=== PATIENT | male | born 1960 | race African-American/Black ===

== ENCOUNTER 2021-07-07 15:44 | Observation (INO) | payer OTHER, SELFPAY ==
[2021-07-07] VITALS (12 sets, daily range): BP systolic 109–165; BP diastolic 74–96; PULSE 71–107; RESP 13–25; TEMP 36.6–37.6; O2SAT 96–99; BMI 33.1
--- NOTE | 2021-07-07 16:01 | DI.RAD.S_ITS ---
PROCEDURE: XR CHEST 1V INDICATIONS: chest pain TECHNIQUE: One view of the chest was acquired. COMPARISON: None. FINDINGS: Surgical changes and devices: None. Lungs and pleura: Lungs are clear. No pleural effusions or pneumothorax. Mediastinum: The cardiac contours are within normal limits. The aorta demonstrates calcification and tortuosity. Bones and chest wall: No suspicious bony lesions. Overlying soft tissues appear unremarkable. IMPRESSION: Portable chest within normal limits. Dictated by: Milind Sandoval M.D. on 07/07/2021 at 15:51 Approved by: Milind Sandoval M.D. on 07/07/2021 at 15:52
[2021-07-07 16:13] LABS: Add Manual Diff / Slide Review NO; Basophils Absolute Auto 0 /uL (0-100); Basophils Percent Auto 0.8 % (0-2); Eosinophils Absolute Auto 0 /uL (0-450); Eosinophils Percent Auto 0.3 % (2-4); Hematocrit 42.4 % (41-53); Lymphocytes Absolute Auto 1000 /uL (1100-4500); Lymphocytes Percent Auto 25.6 % (25-40); Mean Corpuscular HGB Conc 32.9 % (30-36); Mean Corpuscular Hemoglobin 27.1 PG (26-34); Mean Corpuscular Volume 82.5 fL (80-100); Monocytes Absolute Auto 800 /uL (0-900); Monocytes Percent Auto 19.5 % (3-14); Neutrophils Absolute Auto 2100 /uL (1500-7000); Neutrophils Percent Auto 53.8 % (50-75); Platelet Count 286 X10^3/uL (150-400); Red Blood Cell Count 5.14 X10^6/uL (4.5-5.9); Red Cell Distribution Width 15.2 % (11.6-14.8)
--- NOTE | 2021-07-07 16:25 | ED_ITS ---
HPI - Arrhythmia/Palpitations General Chief Complaint: Arrhythmia/Palpitations Stated Complaint: sob, dizzy, racing heart Time Seen by Provider: 07/07/21 16:03 Source: patient Mode of arrival: Ambulatory Limitations: no limitations History of Present Illness HPI narrative: Patient is a 60-year-old male. Ydv-rlqhtot-scexqljfj diabetic, hypertensive who is here for evaluation of palpitations and lightheadedness and occasional shortness of breath. Patient has noticed that for the past several months when he has exercised he gets somewhat lightheaded and feels like his heart is beating fast. He denies any chest pain. The seem to resolve when he quit exercising. Over the past couple days/24 hours he has noticed that the palpitations have come more often an hour also coming when he is not exerting himself. He does get somewhat lightheaded when the events happen. They last for seconds and then resolve. He does get somewhat short of breath when it occurs. He denies any headaches. No vision changes. No lower extremity swelling. No abdominal pain. Has not tried anything for symptoms prior to arri haris. Review of Systems Constitutional Constitutional: Denies fatigue, Denies fever(s) and Denies headache(s) Eyes Eyes: Denies change in vision ENT Ears, Nose, Mouth, and Throat: Denies headache(s) Cardiovascular Cardiovascular: Reports as per HPI and Reports system reviewed and no additional complaints, except as documented Respiratory Respiratory: Reports as per HPI and Reports system reviewed and no additional complaints, except as documented Gastrointestinal Gastrointestinal: Denies abdominal pain, Denies nausea and Denies vomiting Genitourinary Genitourinary: Reports system reviewed and no additional complaints, except as documented Musculoskeletal Musculoskeletal: Reports system reviewed and no additional complaints, except as documented Integumentary/Breasts Skin/Breast: Reports system reviewed and no additional complaints, except as documented Neurologic Neurologic: Denies headache(s) Endocrine Endocrine: Denies fatigue Hematologic/Lymphatic On Anticoagulants: No Patient History Medical History Diabetes Hypertension Social History lives independently: Yes Exam Initial Vital Signs Initial Vital Signs: Vital Signs Pulse Rate 101 H 07/07/21 15:55 Respiratory Rate 16 07/07/21 15:55 Pulse Oximetry 99 07/07/21 15:55 Const General: cooperative and healthy appearing [facility] Head: normal to inspection and normocephalic Eyes General: appearance normal, both eyes and all related structures Resp Effort & Inspection: normal respiratory effort Auscultation: clear to auscultation bilaterally Cardio Rate: tachycardic Rhythm: abnormal rhythm GI Inspection: normal to inspection Skin General: no rashes or lesions noted Neuro General: patient alert, patient awake, patient oriented x3 and moves all extremities Extrem General: normal to inspection and capillary refill normal Psych Appearance: grossly normal and well kempt Course Orders Ordered: ED Orders 07/07/21 16:00 Complete Blood Count AUTO DIFF Stat Comprehensive Metabolic Panel Stat Lipase Stat Magnesium Stat Thyroid Stimulating Hormone Stat Troponin & CK Cardiac Panel Stat 07/07/21 16:01 XR chest 1V Stat EKG-12 Lead Stat 07/07/21 16:10 COVID19 -Nasal swab/Pre-Proc Stat 07/07/21 18:00 Urine Drug Screen, Rapid Stat Discontinued Medications Aspirin (Aspirin 81 Mg Chew Tab) 324 mg PO NOW ONE Stop: 07/07/21 17:18 Last Admin: 07/07/21 17:31 Dose: 324 mg Documented by: YING Metoprolol Succinate (Metoprolol Er 25 Mg Tablet) 25 mg PO NOW ONE Stop: 07/07/21 16:37 Last Admin: 07/07/21 16:45 Dose: 25 mg Documented by: YING Vital Signs Vital signs: Vital Signs - 8 hr 07/07/21 15:55 07/07/21 16:00 07/07/21 16:13 Temperature Pulse Rate 101 H 107 H 98 H Respiratory Rate 16 18 16 Blood Pressure 162/75 H Pulse Oximetry 99 96 96 07/07/21 16:15 07/07/21 16:30 07/07/21 16:31 Temperature 99.6 F Pulse Rate 100 H 104 H 103 H Respiratory Rate 25 H 20 17 Blood Pressure 165/74 H 122/96 H 162/75 H Pulse Oximetry 98 98 98 07/07/21 16:45 07/07/21 17:00 07/07/21 17:20 Temperature Pulse Rate 93 H 96 H 80 Respiratory Rate 16 Blood Pressure 122/96 H 109/78 129/82 Pulse Oximetry 98 07/07/21 17:30 Temperature Pulse Rate 90 Respiratory Rate 13 Blood Pressure 129/82 Pulse Oximetry 98 MDM - Arrhythmia/Palpitations Lab Data Attestation: I reviewed the patient's lab results. Result diagrams: 07/07/21 16:00 07/07/21 16:00 Labs: Lab Results 07/07/21 07/07/21 07/07/21 Range/Units 16:00 16:00 16:00 WBC 4.0 L (4.5-11.0) X10^3/uL RBC 5.14 (4.5-5.9) X10^6/uL Hgb 14.0 (13.5-17.5) g/dL Hct 42.4 (41-53) % MCV 82.5 (80-100) fL MCH 27.1 (26-34) PG MCHC 32.9 (30-36) % RDW 15.2 H (11.6-14.8) % Plt Count 286 (150-400) X10^3/uL Neut % (Auto) 53.8 (50-75) % Lymph % (Auto) 25.6 (25-40) % [place] % (Auto) 19.5 H (3-14) % Eos % (Auto) 0.3 L (2-4) % Baso % (Auto) 0.8 (0-2) % Neut # (Auto) 2100 (5818-3746) /uL Lymph # (Auto) 1000 L (2903-3950) /uL [place] # (Auto) 800 (0-900) /uL Eos # (Auto) 0 (0-450) /uL Baso # (Auto) 0 (0-100) /uL Sodium 135 L (137-145) mmol/L Potassium 3.8 (3.4-5.1) mmol/L Chloride 100 (98-107) mmol/L Carbon Dioxide 22 (22-32) mmol/L BUN 21 H (9-20) mg/dL Creatinine 1.15 (0.66-1.25) mg/dL Estimated GFR > 60.0 (>60) mL/min BUN/Creatinine Ratio 18.3 (6-22) Glucose 111 H (80-110) mg/dL Calcium 10.0 (8.4-10.2) mg/dL Magnesium 1.5 L (1.6-2.3) mg/dL Total Bilirubin 0.4 (0.2-1.3) mg/dL AST 48 (17-59) IU/L ALT 32 (<50) IU/L Alkaline Phosphatase 57 (38-126) U/L Total Creatine Kinase 557 H (55-170) U/L CK-MB (CK-2) 4.79 H (<2.37) ng/mL CK-MB (CK-2) Rel Index 0.9 L (1.5-5.0) % Troponin I 0.026 (0.01-0.034) ng/mL Total Protein 9.6 H (6.3-8.2) g/dL Albumin 5.0 (3.5-5.0) g/dL Globulin 4.6 H (1.7-4.1) g/dL Albumin/Globulin Ratio 1.1 (1.0-2.8) Lipase 119 (23-300) U/L TSH (0.47-4.68) uIU/mL SARS-CoV-2 (PCR) (Negative) 07/07/21 07/07/21 Range/Units 16:00 16:10 WBC (4.5-11.0) X10^3/uL RBC (4.5-5.9) X10^6/uL Hgb (13.5-17.5) g/dL Hct (41-53) % MCV (80-100) fL MCH (26-34) PG MCHC (30-36) % RDW (11.6-14.8) % Plt Count (150-400) X10^3/uL Neut % (Auto) (50-75) % Lymph % (Auto) (25-40) % [place] % (Auto) (3-14) % Eos % (Auto) (2-4) % Baso % (Auto) (0-2) % Neut # (Auto) (0664-1307) /uL Lymph # (Auto) (4816-7692) /uL [place] # (Auto) (0-900) /uL Eos # (Auto) (0-450) /uL Baso # (Auto) (0-100) /uL Sodium (137-145) mmol/L Potassium (3.4-5.1) mmol/L Chloride (98-107) mmol/L Carbon Dioxide (22-32) mmol/L BUN (9-20) mg/dL Creatinine (0.66-1.25) mg/dL Estimated GFR (>60) mL/min BUN/Creatinine Ratio (6-22) Glucose (80-110) mg/dL Calcium (8.4-10.2) mg/dL Magnesium (1.6-2.3) mg/dL Total Bilirubin (0.2-1.3) mg/dL AST (17-59) IU/L ALT (<50) IU/L Alkaline Phosphatase (38-126) U/L Total Creatine Kinase (55-170) U/L CK-MB (CK-2) (<2.37) ng/mL CK-MB (CK-2) Rel Index (1.5-5.0) % Troponin I (0.01-0.034) ng/mL Total Protein (6.3-8.2) g/dL Albumin (3.5-5.0) g/dL Globulin (1.7-4.1) g/dL Albumin/Globulin Ratio (1.0-2.8) Lipase (23-300) U/L TSH 1.97 (0.47-4.68) uIU/mL SARS-CoV-2 (PCR) Negative (Negative) Imaging Data Chest x-ray: Radiologist's Impresson: [place] [address] XRay Report Signed Patient: Wendy Jack III MR#: [id number] : 1960 Acct:[id number] Age/Sex: 60 / M Date of Service: 07/07/21 Loc: ED Accession Number: [id number] ?? Procedure: XR chest 1V Ordering Provider: Stanley Esquivel D.O. PROCEDURE:? XR CHEST 1V ? INDICATIONS:? chest pain ? TECHNIQUE:? One view of the chest was acquired.? ? COMPARISON:? None. ? FINDINGS:? ? Surgical changes and devices:? None.? ? Lungs and pleura:? Lungs are clear.? No pleural effusions or pneumothorax.? ? Mediastinum:? The cardiac contours are within normal limits. The aorta demonstrates calcification and tortuosity. ? Bones and chest wall:? No suspicious bony lesions.? Overlying soft tissues appea r unremarkable.? ? ? IMPRESSION:? ? Portable chest within normal limits. ? ? ? Dictated by: Milind Sandoval M.D. on 07/07/2021 at 15:51 ? ? Approved by: Milind Sandoval M.D. on 07/07/2021 at 15:52?? ECG Data Attestation: I personally reviewed and interpreted this ECG as follows: Prior ECG tracings: not available for review Interpretation: Sinus tachycardia Ventricular rate 109 Occasional PAC Normal QRS Normal QTC Inverted T-wave v 6 Artifact noted V4 V5 Nons[address] T wave changes MDM Narrative Medical decision making narrative: Patient is having episodes of tachycardia. His EKG is sinus tachycardia with frequent PACs but on the monitor he appears to have frequent episodes of atrial fibrillation/atrial flutter that last for 15-20 beats and then resolve. This is happening fairly frequently and these seem to be with the patient is experiencing as his palpitations. His labs are relatively unremarkable. Chest x-ray is unremarkable. Given his past medical history some concern that this potentially is ischemia/ACS causing these new ectopy. Patient has not had risk stratification. Discussed the case with Dr. Wang with internal medicine who will admit for further evaluation and treatment. I did discuss this with the patient as well. He expressed understanding. Discharge Plan Departure Patient Disposition: Admitted as Observation Clinical Impression: Palpitations, Atrial fibrillation Admit Date/Time: 07/07/21 17:56 Admit Provider: Silvia Wang
[2021-07-07 16:28] LABS: Alanine Aminotransferase 32 IU/L (<50); Albumin Globulin Ratio 1.1 (1.0-2.8); Alkaline Phosphatase 57 U/L (38-126); Aspartate Aminotransferase 48 IU/L (17-59); BUN Creatinine Ratio 18.3 (6-22); Bilirubin Total 0.4 mg/dL (0.2-1.3); Blood Urea Nitrogen 21 mg/dL (9-20); Carbon Dioxide 22 mmol/L (22-32); Chloride 100 mmol/L (98-107); Creatine Kinase 557 U/L (55-170); Estimated Glomerular Filt Rate > 60.0 mL/min (>60); Globulin 4.6 g/dL (1.7-4.1); Glucose 111 mg/dL (80-110); HEMOLYSIS < 15 (0-50); Lipase 119 U/L (23-300); Potassium 3.8 mmol/L (3.4-5.1); Sodium 135 mmol/L (137-145); Total Protein 9.6 g/dL (6.3-8.2)
[2021-07-07 16:34] LABS: COVID19 -Nasal RAPID Negative (Negative)
[2021-07-07 16:39] LABS: Troponin I 0.026 ng/mL (0.01-0.034)
[2021-07-07 16:43] LABS: CKMB % Relative Index 0.9 % (1.5-5.0); Creatine Kinase MB 4.79 ng/mL (<2.37)
[2021-07-07] MEDS: METOPROLOL ER 25 MG TABLET PO (16:45)
[2021-07-07] MEDS: ASPIRIN 81 MG CHEW TAB 324 MG PO (17:31)
[2021-07-07 17:32] LABS: Magnesium 1.5 mg/dL (1.6-2.3)
[2021-07-07 18:03] LABS: Thyroid Stimulating Hormone 1.97 uIU/mL (0.47-4.68)
[2021-07-07 18:12] LABS: UR Morphine/Opiate cutoff 300 Negative (Negative); Ur Creatinine Normal (Normal); Ur Specific Gravity Normal (Normal); Urine Amphetamines Negative (Negative); Urine Barbiturates Negative (Negative); Urine Benzodiazepines Negative (Negative); Urine Cocaine Negative (Negative); Urine MDMA Negative (Negative); Urine Methadone Negative (Negative); Urine Methamphetamines Negative (Negative); Urine Oxycodone Negative (Negative); Urine Phencyclidine Negative (Negative); Urine Tetrahydrocannabinol Negative (Negative); Urine Tricyclic Antidepressant Negative (Negative); Urine pH Normal (Normal)
--- NOTE | 2021-07-07 20:39 | DI.ECHO.S_ITS ---
[facility]---------+ [facility] +---------+ : : [address] : : : : [id number] : : : : Phone: [phone]---------+ Echocardiogram Report + + :Name: MAYUR DUNCAN III Study Date: 07/08/2021 Height: 75 in : :[facility] ReadingLocation: Weight: 265 lb: : Gender: Male BSA: 2.5 m2 : :: 1960 Age: 60 yrs BP: 97/52 mmHg: :Reason For Study: ATRIAL FIBRILLATION : :Ordering Physician: ARTHUR, : :APRYL Performed By: Lala Quinonez : :Referring: APRYL GIBSON : + + Interpretation Summary Sinus bradycardia. Heart rate is 52-70 bpm. Normal LV size; mild asymmetric LVH (but without LVOT obstruction); EF is 60- 65%. Severe LA enlargement; RV is at the upper limit of normal. Mild MAC with mild associated MR. Otherwise no significant valvular abnormalities. Severely dilated aortic root (5.1 cm diameter) but without associated AI. Mildly dilated ascending aorta. No prior study available for comparison. Procedure: A two-dimensional transthoracic echocardiogram with color flow and Doppler was performed. The study quality was technically adequate. There is no prior echocardiogram noted for this patient. The patient was in sinus rhythm with heart rates between 52-70 bpm during the exam. The patient had occasional PVCs during the exam. Left Ventricle: The left ventricle is normal in size. There is moderate asymmetric left ventricular hypertrophy. The ejection fraction is estimated to be 60-65%. Right Ventricle: The right ventricle is at the upper limits of normal in size. The right ventricular systolic function is normal. Atria: The left atrium is severely dilated. The right atrium is normal in size. There is no Doppler evidence for an interatrial shunt. Mitral Valve: The mitral valve leaflets appear mildly thickened, but open well. There is mild mitral annular calcification. There is mild mitral regurgitation. Aortic Valve: The aortic valve is trileaflet. The aortic valve opens well. There is no aortic valve stenosis. There is mild aortic regurgitation. Tricuspid Valve: The tricuspid valve is normal in structure and function. There is mild tricuspid regurgitation. Pulmonic Valve: The pulmonic valve leaflets are thin and pliable; valve motion is normal. There is a trace or physiologic amount of pulmonic regurgitation. Great Vessels: The aortic root is severely dilated. The ascending aorta is mildly enlarged. The IVC is of normal diameter and collapses greater than 50% with a sniff. This suggests a low right atrial pressure of 3 mm Hg. Pericardium/ Pleura There is no pericardial effusion. There is no pleural effusion. MMode/2D Measurements & Calculations LVIDd: 5.3 cm LVOT diam: 2.8 cm LVIDs: 3.6 cm Ao root diam: 5.1 cm FS: 31.9 % asc Aorta Diam: 4.3 cm IVSd: 1.4 cm Ao Arch Diam (Prox Trans): 2.7 cm LVPWd: 1.0 cm LV madrid. diameter/BSA (cm/m^2): 2.1 LV sys. diameter/BSA (cm/m^2): 1.5 LA A2 area: 32.6 cm2 RA long axis: 6.5 cm LA A4 area: 27.5 cm2 RA area: 23.6 cm2 LA length (vol): 5.9 cm RA vol: 73.4 ml LA vol: 129.0 ml RA : 29.7 ml/m2 LA vol index: 52.1 ml/m2 IVC diam: 1.4 cm RVD1 (basal): 4.0 cm TAPSE: 1.9 cm Doppler Measurements & Calculations Ao V2 max: 105.3 cm/sec LVOT Max Deniz: 100.1 cm/sec Ao V2 mean: 78.2 cm/sec LV V1 max P.0 mmHg Ao max P.4 mmHg LV V1 VTI: 24.2 cm Ao mean P.6 mmHg ANGEL(I,D): 6.2 cm2 Ao V2 VTI: 24.7 cm ANGEL(V,D): 6.0 cm2 sev ratio: 0.98 ANGEL indexed to BSA (cm^2/m^2): 2.5 MV E max deniz: 66.1 cm/sec PA V2 max: 92.3 cm/sec MV A max deniz: 61.5 cm/sec PA V2 mean: 64.2 cm/sec MV E/A: 1.1 PA mean P.8 mmHg Med Peak E' Deniz: 4.9 cm/sec PA pr(Accel): 27.6 mmHg E/E' med: 13.5 Lat Peak E' Deniz: 7.5 cm/sec E/E' lat: 8.8 E/e' average: 11.2 MV dec time: 0.22 sec MR ERO: 0.26 cm2 MR PISA: 3.7 cm2 SV(LVOT): 153.0 ml MR flow rate: 136.0 cm3/sec MR PISA radius: 0.77 cm Electronically signed by: Sol Cantu M.D. on Reading Physician:07/08/2021 09:37 AM
[2021-07-07 21:07] LABS: Hemoglobin A1C% w Est Avg Glu 5.8 % (4.0-6.0)
[2021-07-07 21:39] LABS: Troponin I 0.028 ng/mL (0.01-0.034)
[2021-07-07] MEDS: MAGNESIUM SULFATE 2 GM/50 ML PIGGYBACK IV (21:45)
[2021-07-07] MEDS: APIXABAN 5 MG TABLET 2.5 MG PO (21:45)
[2021-07-07 21:57] LABS: Magnesium 1.6 mg/dL (1.6-2.3)
[2021-07-07 21:58] LABS: BUN Creatinine Ratio 17.4 (6-22); Blood Urea Nitrogen 20 mg/dL (9-20); Calcium 9.6 mg/dL (8.4-10.2); Carbon Dioxide 27 mmol/L (22-32); Chloride 101 mmol/L (98-107); Estimated Glomerular Filt Rate > 60.0 mL/min (>60); Glucose 116 mg/dL (80-110); HEMOLYSIS < 15 (0-50); Potassium 3.8 mmol/L (3.4-5.1); Sodium 137 mmol/L (137-145)
[2021-07-07 22:02] LABS: Creatine Kinase 512 U/L (55-170)
[2021-07-07 22:19] LABS: CKMB % Relative Index 0.8 % (1.5-5.0); Creatine Kinase MB 4.15 ng/mL (<2.37)
[2021-07-08] VITALS (7 sets, daily range): BP systolic 97–142; BP diastolic 52–93; PULSE 55–75; RESP 16–18; TEMP 35.9–37.2; O2SAT 97–100
--- NOTE | 2021-07-08 01:10 | DI.MRI.S_ITS ---
PROCEDURE: MR STROKE Pre- and post-contrast brain MRI, non-contrast brain MR angiogram, pre- and postcontrast neck MR angiogram INDICATIONS: Cognitive impairment TECHNIQUE: Brain: Noncontrast axial T1 spin echo, axial T2 fast spin echo, sagittal and axial FLAIR, coronal T2 fast spin echo, axial gradient echo, axial diffusion and ADC through the brain. After the administration of contrast, axial 3D VIBE of the cranial vasculature and brain. Brain MRA: Non-contrast 3-D time of flight MR angiogram, with multiple mwjtvss-jtyxjdkcn-bqorykwcxw (MIP) reformats performed. Neck MRA: Axial and sagittal TruFISP through the neck. Coronal dynamic MR angiogram during administration of contrast in the arterial and venous phases, with 3-dimenstional fitfhal-laekotwnl-jappmmficw (MIP) reformats constructed from subtraction images. COMPARISON: None. FINDINGS: Image quality: Excellent. BRAIN: CSF spaces: Ventricles are normal in size and shape. Basal cisterns are patent. No extra-axial fluid collections. Brain: No intracranial bleeds or mass effects. Boland-white matter interface is normal. Diffusion weighted images show no acute ischemic insults. Brainstem appears normal. Normal intravascular flow voids are present. No abnormal intracranial enhancement. Skull and face: Calvarial marrow signal is normal. Orbits appear normal. Sinuses: Sinuses and mastoids are clear. BRAIN MR ANGIOGRAM: Anterior circulation: Intracranial internal carotid arteries are normal in size and enhancement. The flow within the paired anterior cerebral arteries is normal and symmetric. The flow within the middle cerebral arteries is normal and symmetric. The anterior communicating artery is seen. No stenoses, occlusions, or aneurysms. Posterior circulation: The visualized portions of the vertebral arteries demonstrate normal caliber, and join to form a normal appearing basilar artery. The flow within the posterior cerebral arteries is normal and symmetric. No stenoses, occlusions, or aneurysms. NECK MR ANGIOGRAM: The origins of the left and right common, internal and external carotid arteries demonstrate no areas of hemodynamically significant stenosis, vascular occlusion or aneurysmal dilation. Origins of the left and right vertebral arteries demonstrate no areas of hemodynamically significant stenosis, vascular occlusion or aneurysmal dilation. 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 Bovine arch is incidentally noted. Limited, visualized portions of the subclavian vasculature are unremarkable. IMPRESSION: 1. No acute intracranial process. 2. No areas of hemodynamically significant stenosis, vascular occlusion or aneurysmal dilation within the anterior or posterior circulation. 3. No areas of hemodynamically significant stenosis, vascular occlusion or aneurysmal dilation within the neck vasculature. Dictated by: Yanelis Cantrell M.D. on 07/08/2021 at 9:10 Approved by: Yanelis Cantrell M.D. on 07/08/2021 at 9:14
--- NOTE | 2021-07-08 01:13 | P.HP_ITS ---
History of Present Illness History of Present Illness Date Patient Seen: 07/07/21 Time Patient Seen: 20:45 Chief complaint: sob, dizzy, racing heart Narrative: Wendy Jack III is a 60-year-old male with a medical history of [id number] Type II diabetes, essential hypertensive, BPH, and gout who presented to the ED with complaints of palpitations and lightheadedness that he has suffered from mildly, occasionally, chronically for several years but has been increasing in occurrence and intensity. Approximately a week ago the patient began to experience shortness of breath with activity, fatigue, diaphoresis, and worsening dizziness. Patient notes that these episodes sometimes appear to come on with increased talking or prolonged sitting. The e pisodes last anywhere from a few seconds to several minutes. Patient feels that symptoms often improve with walking or relaxation. Though the patient reports when he has had elevated heart rate during exercise that ceasing exercise seems to resolve symptoms as well with rest. The patient often experiences a rapid and irregular heart rate, the patient notes that both his mother and daughter suffer from atrial fibrillation and reports similar experiences. Over the past couple days/24 hours he has noticed that the palpitations have come more often an hour also coming when he is not exerting himself. Has noticed that for the past several months when he has exercised he gets somewhat lightheaded and feels like his heart is beating fast.? He denies any chest pain, headaches, vision changes, lower extremity swelling, abdominal pain, changes in vision, weakness, numbness and tingling, slurred speech, difficulty swallowing, balance or coordination issues, nausea, vomiting, fever, chills, body aches, recent illness injury or trauma. Patient denies any history of spinal cord injury or trauma to the back. During intake interview for admit patient suffered from 3 episodes lasting a few minutes in which the patient and observable mask like facial expression, going from alert and talkative to drowsy, flat type affect unable to articulate a complete thought or statement. Pt also demonstrated spastic type extremity movement. Patient has been prescribed spirolactone, losartan, amlodipine, and HCTZ to manage his essential hypertension. Patient leaves he had an echo 20-30 years ago, denies history of stress test. Patient was mildly febrile I will on admission 99.6, vital signs had been stabilized in ED BP 129/82, HR 90, RR 13, O2 saturation 98%. During these episodes I found the patient to be significantly bradycardic it with heart rates in the low 50s, but not irregular. Patient was extremely diaphoretic during these episodes with NIH:3. Patient's labs were for the most part unremarkable CBC and CMP were within normal limits magnesium was 1.5, troponin 1. 0.026, total creatinine kinase 557, CK-247.79, tox screen was negative, lipase and TSH WNL. Patient's chest x-ray was negative for acute cardiopulmonary process. Patient's EKG demonstrated sinus tachycardia in the ED with a ventricular rate of 109, occasional PACs, inverted T-wave v 6, artifact noted V4 V5, nonspecific ST T wave changes-questionable demonstration of new onset atrial fibrillation/atrial flutter. Heart score: 4. Patient admitted for observation due to sinus tachycardia with nonspecific ST and T-wave changes possible atrial fibrillation/atrial flutter, and stroke. Patient History Medical History (Updated 07/08/21 @ 01:40 by RAMONA Rios) BPH (benign prostatic hyperplasia) Diabetes Essential hypertension Gout Hypertension Non-insulin dependent type 2 diabetes mellitus Surgical History (Updated 07/08/21 @ 01:40 by RAMONA Rios) History of Achilles tendon repair History of left knee surgery Family & Social History Family History Mother Atrial fibrillation Daughter Atrial fibrillation Social History: household members spouse,family. Prior Living Arrangements House lives independently Yes Safety & Behavioral: Feels Safe in Current Yes Environment Been Physically Hurt or No Threatened By a Person Suicidal Ideation Description None Suicide Plan Description No Plan Tobacco & Substance use: Smoking Status Never smoker alcohol intake never Substance Use Type does not use Meds Home Medications and Allergies Home Medications Medication Instructions Recorded Confirmed Type allopurinol 300 mg tablet 300 mg PO QAM 07/07/21 07/07/21 History amlodipine 10 mg tablet 100 mg PO QAM 07/07/21 07/07/21 History hydrochlorothiazide 25 mg tablet 25 mg PO QAM 07/07/21 07/07/21 History losartan 25 mg tablet 25 mg PO QAM 07/07/21 07/07/21 History metformin 500 mg tablet 500 mg PO BID 07/07/21 07/07/21 History spironolactone 100 mg tablet 100 mg PO BID 07/07/21 07/07/21 History tadalafil 5 mg tablet 5 mg PO QPM 07/07/21 07/07/21 History Allergies Allergy/AdvReac Type Severity Reaction Status Date / Time No Known Drug Allergies Allergy Verified 07/07/21 18:41 Review of Systems Review of Systems Narrative: All 12 point systems reviewed with the patient and are negative except otherwise documented. Exam Vital Signs (past 8 hours): - 07/07/21 17:20 07/07/21 17:30 07/07/21 20:00 Temperature 97.9 F Pulse Rate 80 90 71 Respiratory Rate 13 18 Blood Pressure 129/82 129/82 130/77 Pulse Oximetry 98 99 07/07/21 20:32 07/08/21 00:12 07/08/21 00:32 Temperature 99.0 F Pulse Rate 65 Respiratory Rate 16 Blood Pressure 97/52 L Pulse Oximetry 99 99 100 Oxygen Delivery Method Room Air Oxygen Flow Rate 0 Narrative Exam Narrative: General: Patient is a well-developed, well-nourished fit male, in no distress a t this time. HEENT: Normocephalic, atraumatic, extraocular muscles intact, oral pharynx is clear and mucous membranes are moist. Neck is supple and symmetric, trachea is midline, no adenopathy, no thyroid enlargement, nontender, no masses palpated. Negative for JVD Chest: Normal AP diameter and contour without kyphoscoliosis, no nasal flaring, retractions, or tachypneic labored Lungs: Auscultation of all lung aust[place] are clear without adventitious sounds, wheezes, rhonchi, or rales. Cardio: S1 & S2 with regular rate and rhythm without murmur, rubs, or gallops, no carotid bruit, no cardiac pulsations present. Abdomen: Soft nontender, negative for organomegaly, or masses. Bowel sounds a re present in all 4 quadrants without guarding or rebound, no CVA tenderness. Musculoskeletal: Muscle strength and tone are equal within normal limits, no deformity, crepitus, effusions, cyanosis, clubbing or edema present. Full range of motion intact radial and pedal pulses are normal. Skin: Warm dry and intact without rashes, ulcerations or petechiae. Neuro: Alert and orientated x3, strength is +5/5 in all extremities, sensation to touch intact, no gross deficits noted of cranial nerves. Psych: Patient has a well-kept appearance, appropriate affect, mental status attitude thought context and judgment are appropriate for age. -I would like to note 3 episodes lasting no more than 5min in which the pt continued to be alert & orientated x3, but appeared visibly cognitively impair. patient maintained an NIH:3, which then quickly resolved to NIH:0. Objective Labs Result Diagrams: 07/07/21 16:00 07/07/21 21:02 Labs: Laboratory Results - last 24 hr 07/07/21 07/07/21 07/07/21 16:00 16:00 16:00 WBC 4.0 L RBC 5.14 Hgb 14.0 Hct 42.4 MCV 82.5 MCH 27.1 MCHC 32.9 RDW 15.2 H Plt Count 286 Neut % (Auto) 53.8 Lymph % (Auto) 25.6 [place] % (Auto) 19.5 H Eos % (Auto) 0.3 L Baso % (Auto) 0.8 Neut # (Auto) 2100 Lymph # (Auto) 1000 L [place] # (Auto) 800 Eos # (Auto) 0 Baso # (Auto) 0 Sodium 135 L Potassium 3.8 Chloride 100 Carbon Dioxide 22 BUN 21 H Creatinine 1.15 Estimated GFR > 60.0 BUN/Creatinine Ratio 18.3 Glucose 111 H Hemoglobin A1c Calcium 10.0 Magnesium 1.5 L Total Bilirubin 0.4 AST 48 ALT 32 Alkaline Phosphatase 57 Total Creatine Kinase 557 H CK-MB (CK-2) 4.79 H CK-MB (CK-2) Rel Index 0.9 L Troponin I 0.026 Total Protein 9.6 H Albumin 5.0 Globulin 4.6 H Albumin/Globulin Ratio 1.1 Lipase 119 TSH U Opiates 300ng/mL cut Ur Oxycodone Screen Urine Methadone Screen Ur Barbiturates Screen U Tricyclic Antidepress Ur Phencyclidine Scrn Ur Amphetamines Screen U Methamphetamines Scrn Ur MDMA Scrn (Ecstasy) U Benzodiazepines Scrn Urine Cocaine Screen U Marijuana (THC) Screen SARS-CoV-2 (PCR) 07/07/21 07/07/21 07/07/21 16:00 16:00 16:10 WBC RBC Hgb Hct MCV MCH MCHC RDW Plt Count Neut % (Auto) Lymph % (Auto) [place] % (Auto) Eos % (Auto) Baso % (Auto) Neut # (Auto) Lymph # (Auto) [place] # (Auto) Eos # (Auto) Baso # (Auto) Sodium Potassium Chloride Carbon Dioxide BUN Creatinine Estimated GFR BUN/Creatinine Ratio Glucose Hemoglobin A1c 5.8 Calcium Magnesium Total Bilirubin AST ALT Alkaline Phosphatase Total Creatine Kinase CK-MB (CK-2) CK-MB (CK-2) Rel Index Troponin I Total Protein Albumin Globulin Albumin/Globulin Ratio Lipase TSH 1.97 U Opiates 300ng/mL cut Ur Oxycodone Screen Urine Methadone Screen Ur Barbiturates Screen U Tricyclic Antidepress Ur Phencyclidine Scrn Ur Amphetamines Screen U Methamphetamines Scrn Ur MDMA Scrn (Ecstasy) U Benzodiazepines Scrn Urine Cocaine Screen U Marijuana (THC) Screen SARS-CoV-2 (PCR) Negative 07/07/21 07/07/21 07/07/21 18:00 21:02 21:02 WBC RBC Hgb Hct MCV MCH MCHC RDW Plt Count Neut % (Auto) Lymph % (Auto) [place] % (Auto) Eos % (Auto) Baso % (Auto) Neut # (Auto) Lymph # (Auto) [place] # (Auto) Eos # (Auto) Baso # (Auto) Sodium 137 Potassium 3.8 Chloride 101 Carbon Dioxide 27 BUN 20 Creatinine 1.15 Estimated GFR > 60.0 BUN/Creatinine Ratio 17.4 Glucose 116 H Hemoglobin A1c Calcium 9.6 Magnesium Total Bilirubin AST ALT Alkaline Phosphatase Total Creatine Kinase CK-MB (CK-2) CK-MB (CK-2) Rel Index Troponin I 0.028 Total Protein Albumin Globulin Albumin/Globulin Ratio Lipase TSH U Opiates 300ng/mL cut Negative Ur Oxycodone Screen Negative Urine Methadone Screen Negative Ur Barbiturates Screen Negative U Tricyclic Antidepress Negative Ur Phencyclidine Scrn Negative Ur Amphetamines Screen Negative U Methamphetamines Scrn Negative Ur MDMA Scrn (Ecstasy) Negative U Benzodiazepines Scrn Negative Urine Cocaine Screen Negative U Marijuana (THC) Screen Negative SARS-CoV-2 (PCR) 07/07/21 07/07/21 21:02 21:02 WBC RBC Hgb Hct MCV MCH MCHC RDW Plt Count Neut % (Auto) Lymph % (Auto) [place] % (Auto) Eos % (Auto) Baso % (Auto) Neut # (Auto) Lymph # (Auto) [place] # (Auto) Eos # (Auto) Baso # (Auto) Sodium Potassium Chloride Carbon Dioxide BUN Creatinine Estimated GFR BUN/Creatinine Ratio Glucose Hemoglobin A1c Calcium Magnesium 1.6 Total Bilirubin AST ALT Alkaline Phosphatase Total Creatine Kinase 512 H CK-MB (CK-2) 4.15 H CK-MB (CK-2) Rel Index 0.8 L Troponin I Total Protein Albumin Globulin Albumin/Globulin Ratio Lipase TSH U Opiates 300ng/mL cut Ur Oxycodone Screen Urine Methadone Screen Ur Barbiturates Screen U Tricyclic Antidepress Ur Phencyclidine Scrn Ur Amphetamines Screen U Methamphetamines Scrn Ur MDMA Scrn (Ecstasy) U Benzodiazepines Scrn Urine Cocaine Screen U Marijuana (THC) Screen SARS-CoV-2 (PCR) Assessment & Plan Assessment & Plan narrative: Wendy Jack III is a 60-year-old male with a medical history of [id number] Type II diabetes, essential hypertensive, BPH, and gout who presented to the ED with complaints of palpitations and lightheadedness that he has suffered from mildly, occasionally, chronically for several years but has been increasing in occurrence and intensity. Whom upon admit demonstrated 3, 5min episodes of decreased cognitive function. Patient admitted for sinus tachycardia most likely atrial fibrillation/atrial flutter, with possible stroke rule out. 1. Sinus tachycardia likely the result of atrial fibrillation/atrial flutter, acute, present on admission -EKG:demonstrated sinus tachycardia in the ED with a ventricular rate of 109, occasional PACs, inverted T-wave v 6, artifact noted V4 V5, nonspecific ST T wave changes -Rule out myocardial ischemia, ACS, CAD, aortic dissection -Risk stratification -telemonitoring -holding patient's losartan, starting metoprolol 25 mg b.i.d. monitor for hypotension and bradycardia titrate as needed . -Continue patient's amlodipine hydrochlorothiazide. -start Eliquis 2.5 b.i.d. and aspirin 81 mg q.day -Holding patient's spirolactone concerns that patient may be becoming hypotensive secondary to taking 2 diuretics. -echo and stress test ordered for tomorrow -lipid panel, BNP 2. Cognitive impairment, transient, acute, present on admission -found patient to be severely bradycardic during these events with heart rates in the low 50s. Suspect that this is secondary to the metoprolol given in ED to decrease heart rate. -also suspect that patient's low blood sugars also may be contributing, and dehydration resulting from diuretics -NIH: 3, repeat NIH:0 -differential diagnosis TIA, stroke, ischemic stroke, intracranial hemorrhage, subdural hematoma, epidural hematoma, seizure, brain tumor, migraine, vertigo, hypoglycemia, Subha Milton syndrome, multiple sclerosis, aortic dissection. -Stroke MR ordered tomorrow 3. Non insulin-dependent type 2 diabetes, chronic, present on admission -patient's blood sugar on admit 111, repeat 116-concern for hypoglycemia -ordered A1c 5.8%-will hold patient's metformin 500 mg b.i.d. as he is likely having hypoglycemic events. -recommend patient follow up with primary in 3 months to recheck A1c 4. Essential hypertension, acute on chronic, present on admission -B/P highest in ED 165/74,HR 107 currently 97/52 HR 65-ED gave 25 mg of m etoprolol suspect that perhaps this was too aggressive and patient is now having rebound hypotension and bradycardia, which is also likely contributing to cognitive impairment. Patient appears very sensitive to B/P meds. -Monitor B/P, HR, and for afib- titrate medication to achieve optimal control. 5. BPH, acute on chronic, present on admission -continue patient's Tadalafil 6. Gout, chronic, present on admission -continue patient's allopurinol 7. Overweight as evidence by BMI of 33.2, acute on chronic, present on admission -consideration will be given for dietary counseling Code status:Full Surrogate decision maker: Spouse Karina Jack COVID PCR:Negative COVID vaccination: Moderna 2020 +Booster DVT/VTE prophylaxis:Eliquis & SCDs Disposition: Patient admitted for observation expected length of stay less than 2 midnights. Risk stratification trend troponins, complete echo, stress test an MR to rule out cardiac & stroke causes. I have utilized all available immediate resources to obtain, update, or review the patient's current medications. I confirmed that the patient's advanced care plan is present, Code status is documented and/or surrogate decision maker is listed in the patient's medical record. Time Spent With Patient Critical Care time: I spent a total of [] minutes of critical care time on this patient's care today; this time is exclusive of procedural time. Scores GCS Kunia coma scale eye opening: Spontaneous Kun[place] coma scale verbal response: Orientated Jose G coma scale motor response: Obey commands Kunia coma scale total score: 15 NIHSS Level of Conciousness: Not alert, but arousable by minor stim to obey, answer or respond Ask month/age: Answers both questions correctly. Open/close eyes, close hand: Performs both tasks correctly Best gaze horizontal: Normal Visual aust[place]: No visual loss Facial palsy: Normal symetrical movement Left arm drift: No drift for full 10 sec Right arm drift: No drift for full 10 sec Left leg drift: No drift for full 5 sec Right leg drift: No drift for full 5 sec Limb ataxia: Absent Sensory on face/arms/legs: Normal, no sensory loss Best language: Mild to moderate, slurs some words Dysarthria: Mild to mod,some slurring Extinction or inattention: No abnormality Total NIH Stroke scale score: 3 Wells' Criteria for PE Clinical signs and symptoms of DVT: No PE is #1 Dx or equally likely: No Heart rate > 100: Yes Immobilization at least 3 days or surg in previous 4 weeks: No History of PE or DVT: No Hemoptysis: No Malignancy w/Treatment within 6 months or palliative: No Wells' PE Score total: 1.5 Quality VTE Deep Vein Thrombosis/Pulmonary Embolism Present on Admission: No
[2021-07-08 06:22] LABS: Cholesterol 119 mg/dL (140-199); HDL Cholesterol 25 mg/dL (40-60); LDL Cholesterol Calculated 65 mg/dL (<100); Triglycerides 144 mg/dL (35-150)
[2021-07-08 06:30] LABS: NT-proBNP (BNP-Adult 18+) 248 pg/mL (<125)
[2021-07-08 06:33] LABS: Troponin I 0.019 ng/mL (0.01-0.034)
[2021-07-08] MEDS: allopurinoL 300 MG TABLET PO (09:10)
[2021-07-08] MEDS: APIXABAN 5 MG TABLET 2.5 MG PO ×2 (09:10→20:46)
[2021-07-08] MEDS: ASPIRIN EC 81 MG TABLET PO (09:10)
--- NOTE | 2021-07-08 13:28 | PC.NURSE ---
Addendum entered by Olya Barrett R.N. 07/08/21 13:29: Patient back from stress test. He is eating his lunch and visiting with his . Original Note: 1100- Patient at stress test. No blood pressure meds given this am. Patients pulse 60s and blood pressures soft, this order was from .
--- NOTE | 2021-07-08 16:00 | CM.IDA ---
Initial DCP Assessment Note Pt is a 60 yo male, resident of [place], arrives w/complaints of lightheadedness, palpitations w/transient cog impairment. Patient admitted observation for medical w/u to include stress test, echo, MRI neg for acute process PCP: Not Listed Payer: [employer] Reviewed chart, met w/patient and spouse at bedside, introduced role. 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 Patient eager to return home. Spouse Karina expecting patient will require close outpatient f/u and asks about Cardiologists that are in-network w/ [employer]. According to spouse, [employer] does not easily concepción out of network referrals or authorizations. This PAN WASHER HAND suggested securing patient's medical record, bringing that to [facility] PCP to discuss Software Development Manager referral (?) Spouse agreed and would work on obtaining patient's medical record once patient discharged. No needs expected from DC planning team although will remain available in case this changes before patient's DC. RAKESH Santiago Discharge Planning/Care Management CM Discharge Assessment Start: 07/08/21 15:52 Freq: Status: Active Protocol: Document 07/08/21 15:52 ARIANA (Rec: 07/08/21 16:00 ARIANA [id number]) Discharge Planning Assessment Assigned Bank Note Designer RAKESH Meredith DPOA/Assigned Designee Name Karina Jack spouse Contact Information [phone] Advance Directives? No Advance Directives on File No History Provided By Patient Prior Living Arrangements House Household Members spouse,family Type of transporation used prior to Drives own vehicle admit Independent with ADL's Yes Is patient alert and oriented? Yes Caregiver for Another No Barriers to Discharge No Comment Home w/supportive family expected, close outpatient f/u will likely be recommended Discharge Plan Home Transportation Arrangement Spouse Referrals Initiated None needed Additional Comment At this time Whiteboard Updated in Patient Room with Yes name and ext. # of Bank Note Designer
[2021-07-08] MEDS: METOPROLOL IR 50 MG TABLET 25 MG PO (20:47)
[2021-07-09] VITALS: BP 129/75; PULSE 55; RESP 18; TEMP 36.6; O2SAT 100
[2021-07-09 04:00] VITALS: BP 126/80; PULSE 56; RESP 18; TEMP 36.6; O2SAT 100
[2021-07-09 08:00] VITALS: BP 135/94; PULSE 62; RESP 18; TEMP 36.1; O2SAT 98
[2021-07-09] MEDS: APIXABAN 5 MG TABLET 2.5 MG PO (09:38)
[2021-07-09] MEDS: ASPIRIN EC 81 MG TABLET PO (09:38)
[2021-07-09] MEDS: METOPROLOL IR 50 MG TABLET 25 MG PO (09:38)
[2021-07-09] MEDS: hydroCHLOROthiazide 25 MG TABLET PO (09:38)
[2021-07-09] MEDS: AMLODIPINE 5 MG TABLET 10 MG PO (09:39)
[2021-07-09] MEDS: allopurinoL 300 MG TABLET PO (09:39)
[2021-07-09 12:00] VITALS: PULSE 57; RESP 18; TEMP 36.1; O2SAT 100
--- NOTE | 2021-07-09 12:22 | PC.NURSE ---
Addendum entered by Olya Barrett R.N. 07/09/21 12:24: Patients blood sugar 73 at lunch time. Again given some orange juice and is tolerating her lunch. She denies pain and is watching televsion. Original Note: 0730- Patients blood sugar this morning 74, given orange juice and helpful.. Patient ate some breakfast and was given all of her medication. Orthostatic blood pressures done. Patient has an area on her r.mid side of rib cage that is swollen and oozing pus. Dr. Wang is going to look at this when he goes into see patient. She voices no complaints of pain for this RN.
--- NOTE | 2021-07-09 13:47 | PC.NURSE ---
Patient is anxious to go home. Dr. Wang has not made rounds into patients room yet. He denies pain, heart rate regular, and he is up independently. Tele has been sinus marco.
--- NOTE | 2021-07-09 14:04 | CM.DPNOTE ---
DC Note Patient discharging today; home w/spouse and close outpatient f/u. No needs from this MEDICAL LEAD identified JW
--- NOTE | 2021-07-09 15:41 | PM.PN.1 ---
Subjective Subjective Interval history: Patient denies any recurrence of his racing heart. He denies any CP, SOB, cough, or any other sxs during these episodes. He is unsure of what might be causing this. He does endorse having a daughter who has MEN-1 syndrome. He denies that he's ever had this issue before. Exam Vital Signs (past 8 hours): - 07/09/21 08:00 07/09/21 12:00 Temperature 97 F L 97 F L Pulse Rate 62 57 L Respiratory Rate 18 18 Blood Pressure 135/94 H Pulse Oximetry 98 100 Oxygen Delivery Method Room Air Oxygen Flow Rate 0 Const Other: The patient is sitting up in bed upon my entering the room, in no apparent acute distress. Eyes Other: No scleral icterus appreciated. Neck Other: No carotid bruits appreciated. Resp Other: Clear to auscultation bilaterally. Cardio Other: Regular rate and rhythm. S1 and S2 heart sounds auscultated with no extra heart sounds or murmurs appreciated. No peripheral edema noted. GI Other: Soft, non-distended, non-tender. Bowel sounds present. Skin Other: No una skin lesions appreciated grossly. Extrem Other: Palpable radial and dorsalis pedis pulses bilaterally. Objective Labs Result Diagrams: 07/07/21 16:00 07/07/21 21:02 [facility] Medical History (Updated 07/08/21 @ 01:40 by JOHN Rios-GIANCARLO) BPH (benign prostatic hyperplasia) Diabetes Essential hypertension Gout Hypertension Non-insulin dependent type 2 diabetes mellitus Surgical History (Updated 07/08/21 @ 01:40 by JOHN Rios-GIANCARLO) History of Achilles tendon repair History of left knee surgery Family History Mother Atrial fibrillation Daughter Atrial fibrillation Social History household members: spouse and family lives independently: Yes Smoking Status: Never smoker alcohol intake: never Assessment & Plan Assessment & Plan narrative: Assessment: 1. Sinus tachycardia of unclear etiology, occurs without exertion 2. Hypertension, essential 3. Non-insulin dependent DM II 4. Hx of erectile dysfunction 5. Hx of gout 6. Obesity class I, BMI 33 Plan: 1. EKG showed sinus tachycardia with occasional PAC's. Medications reviewed and do not appear to be contributing to this. Echocardiogram unremarkable. Inpatient exercise treadmill unremarkable. Ultimately, I informed the patient that he should follow-up with a parts department manager outpatient. At that time, they can determine if electrophysiology referral is appropriate, for possible EP study. 2. Will continue home losartan 25 mg daily, HCTZ 25 mg daily, amlodipine 10 mg daily, and spironolactone 100 mg daily. 3. A1c 5.8% and patient was advised to discontinue home metformin 500 mg bid in favor of diet and exercise-controlled DM II. He denies tremulousness, brain fog, diaphoresis, etc., or other sxs of hypoglycemia. 4. Patient takes tadalafil at home and denies untoward side effects. He denies that it's a new medication. 5. Will continue home allopurinol 300 mg daily. 6. Counseling provided. Disposition: Home today with close cardiology follow-up Time Spent With Patient Critical Care time: I spent a total of [] minutes of critical care time on this patient's care today; this time is exclusive of procedural time. Quality VTE Deep Vein Thrombosis/Pulmonary Embolism Present on Admission: No
[2021-07-09 16:00] VITALS: BP 127/78; PULSE 66; RESP 18; TEMP 35.9; O2SAT 99
--- NOTE | 2021-07-09 16:32 | PM.DS.1 ---
History of Present Illness History of Present Illness Chief complaint: sob, dizzy, racing heart Narrative: 60yo male with a hx of gout, erectile dysfunction and hypertension that presented with feeling a racing heart. Rhythm was sinus tachycardia inpatient, which then self-resolved. A work-up inpatient, including an echocardiogram and an exercise stress test, were unremarkable. The first night he was admitted, the patient experienced some mask facies and fogginess. This occurred at night when he had not had much sleep. There was concern for TIA or stroke, and brain MRI was completely unremarkable. Ultimately, the patient would benefit from seeing cardiology outpatient, with a possible electrophysiology referral for an EP study, if this problem persists. Discharge Providers Provider Date of admission: 07/07/21 17:56 Discharge Date: 07/09/21 Discharge provider: Silvia Wang MD Summary Hospital Course Discharge Diagnosis: . Sinus tachycardia of unclear etiology, occurs without exertion 2. Hypertension, essential 3. Non-insulin dependent DM II 4. Hx of erectile dysfunction 5. Hx of gout 6. Obesity class I, BMI 33 Hospital Course: 60yo male with a hx of gout, erectile dysfunction and hypertension that presented with feeling a racing heart. Rhythm was sinus tachycardia inpatient, which then self-resolved. A work-up inpatient, including an echocardiogram and an exercise stress test, were unremarkable. The first night he was admitted, the patient experienced some mask facies and fogginess. This occurred at night when he had not had much sleep. There was concern for TIA or stroke, and brain MRI was completely unremarkable. Ultimately, the patient would benefit from seeing cardiology outpatient, with a possible electrophysiology referral for an EP study, if this problem persists.? Exam Vital Signs (past 8 hours): - 07/09/21 12:00 07/09/21 16:00 Temperature 97 F L 96.6 F L Pulse Rate 57 L 66 Respiratory Rate 18 18 Blood Pressure 127/78 Pulse Oximetry 100 99 Oxygen Delivery Method Room Air Oxygen Flow Rate 0 Objective Labs Result Diagrams: 07/07/21 16:00 07/07/21 21:02 [facility] Medical History (Updated 07/08/21 @ 01:40 by RAMONA Rios) BPH (benign prostatic hyperplasia) Diabetes Essential hypertension Gout Hypertension Non-insulin dependent type 2 diabetes mellitus Surgical History (Updated 07/08/21 @ 01:40 by RAMONA Rios) History of Achilles tendon repair History of left knee surgery Family History Mother Atrial fibrillation Daughter Atrial fibrillation Social History household members: spouse and family lives independently: Yes Smoking Status: Never smoker alcohol intake: never Discharge Assessment & Plan Assessment and Plan Assessment: Assessment: 1. Sinus tachycardia of unclear etiology, occurs without exertion 2. Hypertension, essential 3. Non-insulin dependent DM II 4. Hx of erectile dysfunction 5. Hx of gout 6. Obesity class I, BMI 33 Plan of Treatment: Plan: 1. EKG showed sinus tachycardia with occasional PAC's. Medications reviewed and do not appear to be contributing to this. Echocardiogram unremarkable. Inpatient exercise treadmill unremarkable. Ultimately, I informed the patient that he should follow-up with a medical insurance coder outpatient. At that time, they can determine if electrophysiology referral is appropriate, for possible EP study. 2. Will continue home losartan 25 mg daily, HCTZ 25 mg daily, amlodipine 10 mg daily, and spironolactone 100 mg daily. 3. A1c 5.8% and patient was advised to discontinue home metformin 500 mg bid in favor of diet and exercise-controlled DM II. He denies tremulousness, brain fog, diaphoresis, etc., or other sxs of hypoglycemia. 4. Patient takes tadalafil at home and denies untoward side effects. He denies that it's a new medication. 5. Will continue home allopurinol 300 mg daily. 6. Counseling provided. Discharge Plan Discharge Plan Patient Disposition: Home Discharge orders & Medications Prescriptions: Continued spironolactone 100 mg tablet 100 mg PO BID 0RF Label Comments: take 1 tablet by mouth twice a day amlodipine 10 mg tablet 10 mg PO QAM 0RF Label Comments: take 1 tablet by mouth once daily losartan 25 mg tablet 25 mg PO QAM 0RF Label Comments: take 1 tablet by mouth once daily allopurinol 300 mg tablet 300 mg PO QAM 0RF hydrochlorothiazide 25 mg tablet 25 mg PO QAM 0RF Label Comments: take 1 tablet by mouth every morning tadalafil 5 mg tablet 5 mg PO QPM 0RF Discontinued metformin 500 mg tablet 500 mg PO BID 0RF Label Comments: take 2 tablets by mouth twice a day Visit Report/Discharge Packet Instructions: Atrial Fibrillation, DI for Bradycardia Discharge Data Attending Provider: Silvia Wang Quality VTE Deep Vein Thrombosis/Pulmonary Embolism Present on Admission: No
--- NOTE | 2021-07-10 15:49 | DI.NM.S_ITS ---
DATE OF SERVICE: PROCEDURE: Exercise perfusion study. DATE OF STUDY: June 28, 2021. INDICATIONS: Atrial fibrillation, palpitation, shortness of breath, dyspnea, diabetes mellitus, hypertension. RADIOPHARMACEUTICAL: 27.1 millicurie technetium-99m Myoview IV was injected at stress. This is exercise stress perfusion study only. CARDIAC STRESS: The patient underwent exercise perfusion study under the supervision of an attending staff. The patient walked on Art protocol for 10 minutes and 15 seconds, achieved 90 percent of target heart rate, normal blood pressure response, 12.8 METs of workload and functional aerobic impairment -17 percent. Baseline blood pressure 124/80 mmHg and maximum blood pressure 190/80 mmHg. No anginal symptoms. Baseline rhythm was sinus with PACs and diffuse T- wave inversion. During exercise, no convincing ischemic changes seen. The patient has intermittent PACs as well as PVCs without any sustained ventricular tachycardia. No obvious AFib was seen. RAW DATA: There appears to be adequate myocardial uptake. GATED STUDY: Stress LV ejection fraction 66 percent without any obvious wall motion abnormalities. Stress end-diastolic volume 155 mL. Lung/heart ratio 0.41, which is within normal limits. MYOCARDIAL PERFUSION SCAN: Stress supine images revealed normal myocardial perfusion. CONCLUSION: This is a normal myocardial perfusion study. Good exercise tolerance. Normal hemodynamic response. Functional aerobic impairment 12.8 percent. Baseline frequent PACs as well as PVCs seen during exercise without any obvious atrial fibrillation or ventricular tachycardia. Overall low-risk myocardial perfusion scan. Guero CHACONWendy - Manuel/fredy doc#: [id number]/job#: [id number] dd: 07/08/2021 13:17:00 dt: 07/08/2021 13:29:00 DICTATING MD/COPIES TO: Camden Brunson MD COPIES MNE: AGUS;
--- NOTE | 2021-07-15 13:03 | PC.NURSE ---
Late Entry; Magnesium infusion initiated 07/07 @ 21:45 Complete at 23:46.
== END 2021-07-09 18:00 | disposition home or self-care (01) ==
LOC: ED 17:20 → AC 17:57
PROVIDERS: Nurse Practitioner Family; Admitting Provider Student in an Organized Health Care Education/Training Program; Emergency Provider Emergency Medicine; Referring Provider Emergency Medicine; Visit Provider Student in an Organized Health Care Education/Training Program
DX: R00.0 Tachycardia, unspecified (principal); R06.02 Shortness of breath; E11.9 Type 2 diabetes mellitus without complications; I10 Essential (primary) hypertension; N40.0 Benign prostatic hyperplasia without lower urinary tract symptoms; R00.2 Palpitations; R42 Dizziness and giddiness; Z20.822 Contact with and (suspected) exposure to COVID-19; R29.703 NIHSS score 3; E66.9 Obesity, unspecified; Z68.33 Body mass index [BMI] 33.0-33.9, adult
CPT/HCPCS: 36415; 70548; 70553; 71045; 78451; 80048; 80053; 80061; 80305; 82550; 82553; 82962; 83036; 83690; 83735; 83880; 84443; 84484; 85025; 87635; 93005; 93017; 93306; 96365; 96366; 99284; C9803; G0378; A9502; J1815; J3475

== ENCOUNTER → 2021-08-25 15:36 | Outpatient (CLI) | payer OTHER, SELFPAY ==
[2021-07-07 18:41] VITALS: BMI 33.1
[2021-08-25 16:20] LABS: COVID19 -Nasal RAPID Negative (Negative)
== END ==
PROVIDERS: Referring Provider Nurse Practitioner Family; Visit Provider Nurse Practitioner Family
DX: Z20.822 Contact with and (suspected) exposure to COVID-19 (principal)
CPT/HCPCS: 87635

== ENCOUNTER 2022-06-27 11:24 | Emergency (ER) | payer OTHER, SELFPAY ==
[2021-07-07 18:41] VITALS: BMI 33.1
[2022-06-27 11:34] VITALS: BP 136/86; PULSE 68; RESP 18; TEMP 36; O2SAT 99; BMI 33.1
--- NOTE | 2022-06-27 12:09 | ED.BACK ---
HPI - Back Pain/Injury <Kerry Turcios PA-C - Last Filed: 06/27/22 20:23> General Chief Complaint: Back Pain/Injury Stated Complaint: back pain/injury Time Seen by Provider: 06/27/22 12:08 Source: patient History of Present Illness HPI Narrative: the patient is 61 yo male with PMH significant for HTN, Gout, on ACT with Dabigatran , for history of A Fib, complains of acute onset of low back pain following him lifting heavy loads on Tuesday. Patient experienced sharp left-sided low back pain. It gradually got worse, causing him some difficulty transferring, pain is rated 7/10. He has ongoing pain, which prompted current ER visit. At present, patient denies tingling numbness in his lower extremities. He denies chronic back pain. Patient recalled he did have some injury about 40 years ago with compression of his disc which was treated conservatively with PT, analgesics and resolved on its own. His usual careful about lifting, however this time perhaps he as he admits ?I threw my back off ? Related Data Home Medications Medication Instructions Recorded Confirmed allopurinol 300 mg tablet 300 mg PO QAM 07/07/21 08/25/21 amlodipine 10 mg tablet 10 mg PO QAM 07/07/21 08/25/21 hydrochlorothiazide 25 mg tablet 25 mg PO QAM 07/07/21 08/25/21 losartan 25 mg tablet 25 mg PO QAM 07/07/21 08/25/21 spironolactone 100 mg tablet 100 mg PO BID 07/07/21 08/25/21 tadalafil 5 mg tablet 5 mg PO QPM 07/07/21 08/25/21 dabigatran etexilate 75 mg capsule 75 mg PO BID 08/25/21 08/25/21 (Pradaxa) Previous Rx's Medication Instructions Recorded methocarbamol 750 mg tablet 750 mg PO TID PRN muscle spasm 06/27/22 #30 tabs tramadol 50 mg tablet 50 mg PO TID PRN pain #30 tabs 06/27/22 Allergies Allergy/AdvReac Type Severity Reaction Status Date / Time No Known Drug Allergies Allergy Verified 06/27/22 12:33 Review of Systems <Kerry Turcios PA-C - Last Filed: 06/27/22 20:23> Review of Systems Narrative: Pertinent review of systems is otherwise normal unless stated in HPI Patient History <Krery Turcios PA-C - Last Filed: 06/27/22 20:23> Medical History (Updated 06/27/22 @ 12:37 by Kerry Turcios PA-C) BPH (benign prostatic hyperplasia) Diabetes Essential hypertension Gout Hypertension Non-insulin dependent type 2 diabetes mellitus Surgical History History of Achilles tendon repair History of left knee surgery Family History Mother Atrial fibrillation Daughter Atrial fibrillation Social History household members: spouse and family lives independently: Yes Smoking Status: Never smoker alcohol intake: never Smoking Status: Never smoker alcohol intake frequency: 0-2 drinks per day Substance Use Type: does not use Exam <Kerry Turcios PA-C - Last Filed: 06/27/22 20:23> Narrative Exam Narrative: GENERAL: 61 yo AAM appears stated age. Well-developed patient, in mild distress due to pain . HEAD: Atraumatic. Normocephalic. EYES: Pupils equal round and reactive. Extraocular motions intact. No scleral icterus. No injection or drainage. ENT: Nose without bleeding, purulent drainage. Throat without erythema, tonsillar hypertrophy or exudate. Airway patent. NECK: Trachea midline. Non tender CARDIOVASCULAR: irregular rhythm , reg rate of A fib and without murmurs, gallops, or rubs. RESPIRATORY: Clear to auscultation. Breath sounds equal bilaterally. No wheezes, rales, or rhonchi. GASTROINTESTINAL: Abdomen soft, non-tender, nondistended. EXTREMITIES: No edema or joint tenderness. BACK: Lt sided paraspinal sacro iliac and lumbar tendenress, visible muscle spasm, no crepitance. No flank tenderness. NEURO: AOx3. reflexes LE are hypoactive on Lt side SKIN: No rash or erythema of visible areas Initial Vital Signs Initial Vital Signs: Vital Signs Temperature 96.8 F L 06/27/22 11:34 Pulse Rate 68 06/27/22 11:34 Respiratory Rate 18 06/27/22 11:34 Blood Pressure 136/86 06/27/22 11:34 Pulse Oximetry 99 06/27/22 11:34 Oxygen Delivery Method 06/27/22 11:34 <Stanley Esquivel DO - Last Filed: 06/28/22 07:18> Initial Vital Signs Initial Vital Signs: Vital Signs Temperature 96.8 F L 06/27/22 11:34 Pulse Rate 68 06/27/22 11:34 Respiratory Rate 18 06/27/22 11:34 Blood Pressure 136/86 06/27/22 11:34 Pulse Oximetry 99 06/27/22 11:34 Oxygen Delivery Method 06/27/22 11:34 Course <Kerry Turcios PA-C - Last Filed: 06/27/22 20:23> Orders Ordered: Discontinued Medications Methocarbamol (Methocarbamol 500 Mg Tablet) 750 mg PO NOW ONE Stop: 06/27/22 12:35 Last Admin: 06/27/22 13:09 Dose: 750 mg Documented By: HEATHER Tramadol HCl (Tramadol 50 Mg Tablet) 50 mg PO NOW ONE Stop: 06/27/22 12:34 Last Admin: 06/27/22 13:09 Dose: 50 mg Documented By: HEATHER Vital Signs Vital signs: Vital Signs - 8 hr 06/27/22 14:15 Pulse Rate 60 Respiratory Rate 18 Blood Pressure 141/85 H Pulse Oximetry 99 Oxygen Delivery Method Room Air <Stanley Esquivel DO - Last Filed: 06/28/22 07:18> Orders Ordered: Discontinued Medications Methocarbamol (Methocarbamol 500 Mg Tablet) 750 mg PO NOW ONE Stop: 06/27/22 12:35 Last Admin: 06/27/22 13:09 Dose: 750 mg Documented By: HEATHER Tramadol HCl (Tramadol 50 Mg Tablet) 50 mg PO NOW ONE Stop: 06/27/22 12:34 Last Admin: 06/27/22 13:09 Dose: 50 mg Documented By: HEATHER Vital Signs Vital signs: Vital Signs - 8 hr 06/27/22 14:15 Pulse Rate 60 Respiratory Rate 18 Blood Pressure 141/85 H Pulse Oximetry 99 Oxygen Delivery Method Room Air MDM - Back Pain/Injury <Kerry Turcios PA-C - Last Filed: 06/27/22 20:23> Imaging Data Lumbar spine xray : Radiologist's Impression: IMPRESSION:? ? Degenerative disc disease and arthropathy without evidence of fracture or traumatic malalignment ? sacroliliac xray : Radiologist's Impression: IMPRESSION:? Unremarkable sacroiliac joint radiographs ? MDM Narrative Medical decision making narrative: patient is displaying signs and symptoms of acute muscle strain and spasm perhaps triggered by lifting, several etiologies for patient's symptoms considered including: pre existing DDD, strain during lifting Patient's symptoms improved over duration of stay with NSAID and muscle relaxant therapies. Findings and discharge diagnosis discussed with patient/family followed by verbalization of understanding Return precautions discussed with patient/family whom verbalize understanding. Discharge Plan Departure Patient Disposition: Home Clinical Impression: Strain of lumbar region, Acute back pain, Lumbar back pain Instructions: DI for Back Spasm Activity Restrictions/Additional Instructions: *You have been diagnosed with acute muscle spasm triggering low back still *What to do: *Please continue to take your regular medications as directed. [x ] New medications prescriptions sent to your pharmacy: Robaxin 750 mg three times a day for 10 days tramadol 50 mg three times a day *Please follow up with your primary care provider in 2-3 days, call for an appointment. Let them know you were seen in the Emergency Department and that we ask that you be seen in follow up. We will electronically transmit a record of today's note if your PCP is in our system *If you do not have a primary care provider please contact the [facility] Resource line at [phone]. They will ask some questions about your medical history and help get you set up with a doctor in the community. *Return to Emergency Department if you should have any new, worsening or concerning symptoms, such as worsening pain, persistent vomiting or other bothersome symptoms Prescriptions: New methocarbamol 750 mg tablet 750 mg PO TID PRN (Reason: muscle spasm ) Qty: 30 0RF tramadol 50 mg tablet 50 mg PO TID PRN (Reason: pain) Qty: 30 0RF No Action Pradaxa 75 mg capsule 75 mg PO BID spironolactone 100 mg tablet 100 mg PO BID Label Comments: take 1 tablet by mouth twice a day amlodipine 10 mg tablet 10 mg PO QAM Label Comments: take 1 tablet by mouth once daily losartan 25 mg tablet 25 mg PO QAM Label Comments: take 1 tablet by mouth once daily allopurinol 300 mg tablet 300 mg PO QAM hydrochlorothiazide 25 mg tablet 25 mg PO QAM Label Comments: take 1 tablet by mouth every morning tadalafil 5 mg tablet 5 mg PO QPM Referrals: Miscellaneous,Doctor, MD [Primary Care Provider] - Visit Report Forms: Patient Portal/API <Stanley Esquivel, - Last Filed: 06/28/22 07:18> Cosign ED Attending Cosignature Attestation: Dr Esquivel Co-Sign Statement: I was available for consultation during this patient's emergency department visit. This chart is signed by myself for administrative purposes only. I did not have direct contact with this patient during this visit. They were seen independently by the APC.
--- NOTE | 2022-06-27 12:28 | DI.RAD.S_ITS ---
PROCEDURE: XR LUMBAR SPINE 2-3V INDICATIONS: low back pain after lifting heavy load ro discitis TECHNIQUE: 3 views of the lumbar spine were acquired. COMPARISON: None. FINDINGS: Bones: 5 [id number] vertebrae are present. There is normal bony alignment. No vertebral body compression fractures. No suspicious bony lesions. Lower lumbar spine disc space narrowing and facet arthropathy Soft tissues: Overlying bowel gas pattern is normal. No suspicious soft tissue calcifications. IMPRESSION: Degenerative disc disease and arthropathy without evidence of fracture or traumatic malalignment Approved by: Bishop Claros M.D. on 06/27/2022 at 12:43
--- NOTE | 2022-06-27 12:31 | DI.RAD.S_ITS ---
PROCEDURE: XR SACROILIAC JOINT MIN 3V INDICATIONS: lifted heavy load now w LBP TECHNIQUE: 3 views of the sacroiliac joints were acquired. COMPARISON: None. FINDINGS: Bones: No bony erosions or ankylosis. No suspicious bony lesions. No fractures. Soft tissues: Overlying bowel gas pattern is normal. No suspicious soft tissue densities. IMPRESSION: Unremarkable sacroiliac joint radiographs Approved by: Bishop Claros M.D. on 06/27/2022 at 12:44
[2022-06-27] MEDS: TRAMADOL 50 MG TABLET PO (13:09)
[2022-06-27] MEDS: methocarbamoL 500 MG TABLET 750 MG PO (13:09)
--- NOTE | 2022-06-27 13:11 | PC.NURSE ---
pain is at 5/10 while standing. Most comfortable in that position
[2022-06-27 14:15] VITALS: BP 141/85; PULSE 60; RESP 18; O2SAT 99
== END 2022-06-27 14:22 | disposition home or self-care (01) ==
PROVIDERS: Emergency Provider Physician Assistant Medical
DX: S39.012A Strain of muscle, fascia and tendon of lower back, initial encounter (principal); X50.0XXA Overexertion from strenuous movement or load, initial encounter
CPT/HCPCS: 72100; 72202; 99283